=== PATIENT | male | born 1950 | race Caucasian/White ===

== ENCOUNTER 2016-09-23 09:12 | Outpatient (CLI) | payer MEDICARE, BC ==
[2016-09-23 10:47] LABS: Hemoglobin A1c 5.5 % (4.0-6.0)
== END 2016-09-23 09:13 | disposition home or self-care (01) ==
LOC: NAV LAB 09:12
PROVIDERS: ATTEND Family Medicine
DX: E11.9 Type 2 diabetes mellitus without complications (principal)
CPT/HCPCS: 36415; 83036

== ENCOUNTER 2016-12-22 08:33 | Outpatient (CLI) | payer MEDICARE, BC ==
[2016-12-22 09:24] LABS: Hemoglobin A1c 5.5 % (4.0-6.0)
== END 2016-12-22 08:34 | disposition home or self-care (01) ==
LOC: NAV LAB 08:33
PROVIDERS: ATTEND Family Medicine
DX: E11.9 Type 2 diabetes mellitus without complications (principal)
CPT/HCPCS: 36415; 83036

== ENCOUNTER 2017-03-09 08:48 | Outpatient (CLI) | payer MEDICARE, BC ==
[2017-03-09 15:40] LABS: Bilirubin Negative (Negative); Blood, Urine Trace (Negative); Clarity Clear (Clear); Glucose, Urine (Dipstick) Negative (Negative); Leukocyte Negative (Negative); Nitrite Negative (Negative); Protein, Urine (Dipstick) Negative (Neg-Trace); Urobilinogen 0.2 mg/dL (0.2-1.0); pH, Urine 6.5 (5.0-9.0)
[2017-03-09 19:06] LABS: RBC/HPF None Seen HPF (0-3); Squamous Epithelial 0-3 HPF (0-3)
== END 2017-03-09 08:49 | disposition home or self-care (01) ==
LOC: NAV LAB 08:48
PROVIDERS: ATTEND Urology
DX: R39.89 Other symptoms and signs involving the genitourinary system (principal)
CPT/HCPCS: 81001; 87086

== ENCOUNTER 2017-03-16 20:32 | Emergency (ER) | payer MEDICARE, BC ==
[2017-03-16 21:12] LABS: #Basophils 0.1 thou/uL (0.0-0.2); #Eosinphils 0.3 thou/uL (0.0-0.7); #Monocytes 0.7 thou/uL (0.11-0.59); #Neutrophils 5.4 thou/uL (1.40-6.50); %Basophils 0.9 % (0.0-1.0); %Lymphocytes 31.8 % (21.0-51.0); %Monocytes 7.2 % (0.0-10.0); Hemoglobin 14.7 g/dL (14.0-18.0); Mean Corpuscular HGB CONC 32.9 g/dL (32.0-36.0); Mean Corpuscular Hemoglobin 29.2 pg (27.0-31.0); Mean Corpuscular Volume 88.8 fl (80.0-94.0); Mean Platelet Volume 9.7 fL (7.4-10.4); Platelet Count 226 thou/uL (130-400); RBC Distribution Width 12.4 % (11.5-14.5); Red Blood Cell (RBC) Count 5.01 mill/uL (4.70-6.10); White Blood Cell (WBC) Count 9.4 thou/uL (4.8-10.8)
[2017-03-16 21:26] LABS: ALT (SGPT) 38 U/L (8-55); AST (SGOT) 25 U/L (5-34); Albumin 4.2 g/dL (3.4-4.8); Alkaline Phosphatase 65 U/L (40-150); Anion Gap 14 mmol/L (10-20); BUN (Urea Nitrogen) 18 mg/dL (8.4-25.7); Bilirubin, Total 0.4 mg/dL (0.2-1.2); CK (CPK) 47 U/L (30-200); Calc. Creatinine Clearance 0 mL/min (70-130); Calcium 9.7 mg/dL (7.8-10.44); Carbon Dioxide 24 mmol/L (23-31); Chloride 107 mmol/L (98-107); Estimated GFR-MDRD Greater than 90; Globulin 2.7 g/dL (2.4-3.5); Glucose 124 mg/dL (80-115); Potassium 3.8 mmol/L (3.5-5.1); Protein, Total 6.9 g/dL (5.8-8.1); Sodium 141 mmol/L (136-145)
[2017-03-16 21:27] LABS: CKMB 0.8 ng/mL (0-6.6); Troponin I Less than 0.010 ng/mL (< 0.028)
--- NOTE | 2017-03-16 21:45 | CT ---
HISTORY: Visual disturbance. CT BRAIN 03/16/[address] images of brain obtained. The brain is unremarkable. No evidence of intracra nial masses, hemorrhages, strokes or contusions seen. IMPRESSION: Normal CT brain. POS: [facility]
== END 2017-03-16 22:51 | disposition home or self-care (01) ==
LOC: NAV ERS 20:32
DX: H53.9 Unspecified visual disturbance (principal); R07.9 Chest pain, unspecified; E78.5 Hyperlipidemia, unspecified; I10 Essential (primary) hypertension; F41.9 Anxiety disorder, unspecified; Z79.899 Other long term (current) drug therapy; Z79.82 Long term (current) use of aspirin
CPT/HCPCS: 70450; 80053; 82553; 84484; 85025; 93005

== ENCOUNTER 2019-02-02 11:32 | Outpatient (CLI) | payer MEDICARE, BC ==
--- NOTE | 2019-02-02 12:50 | RAD ---
AP view abdomen. HISTORY: Left flank pain. AP view abdomen is obtained. Abdominal gas pattern is nonspecific. A large amount of stool seen in the colon. No dilated loops of small bowel or colon seen. IMPRESSION: no significant evidence of acute intra-abdominal pathology seen.
--- NOTE | 2019-02-02 13:38 | RAD ---
RIGHT HIP 2 VIEWS: Date: 02/02/19 HISTORY: Right hip pain. FINDINGS/IMPRESSION: Degenerative changes right hip joint with small lateral acetabular intraosseous cyst and evidence for a probable femoral bump. No acute fracture or dislocation, or other acute process. POS: OFF
== END 2019-02-02 11:33 | disposition home or self-care (01) ==
LOC: NAV RAD 11:32
PROVIDERS: ATTEND Family Medicine
DX: N20.0 Calculus of kidney (principal); M25.551 Pain in right hip; M16.11 Unilateral primary osteoarthritis, right hip; M85.68 Other cyst of bone, other site
CPT/HCPCS: 74018

== ENCOUNTER 2019-07-27 14:39 | Emergency (ER) | payer MEDICARE, BC ==
[2019-07-27] MEDS ORDERED: Lidocaine 1% (PF) 30 ML VIAL ONE (14:58)
[2019-07-27] MEDS ORDERED: Bacitracin 1 PK ONE (15:45)
[2019-07-27] MEDS ORDERED: Cephalexin 250 MG CAP ONE (15:57)
== END 2019-07-27 16:11 | disposition home or self-care (01) ==
LOC: NAV ERS 14:39
DX: S61.217A Laceration without foreign body of left little finger without damage to nail, initial encounter (principal); I25.10 Atherosclerotic heart disease of native coronary artery without angina pectoris; E78.5 Hyperlipidemia, unspecified; I10 Essential (primary) hypertension; F41.9 Anxiety disorder, unspecified; Z87.891 Personal history of nicotine dependence; Z86.73 Personal history of transient ischemic attack (TIA), and cerebral infarction without residual deficits; Z79.899 Other long term (current) drug therapy; Z79.82 Long term (current) use of aspirin; W26.0XXA Contact with knife, initial encounter
CPT/HCPCS: 12001; 90471; J2001

== ENCOUNTER 2020-02-26 22:02 | Emergency (ER) | payer MEDICARE, BC | END 2020-02-26 22:47 | disposition home or self-care (01) | LOC: NAV ERS 22:02 | DX: K40.90 Unilateral inguinal hernia, without obstruction or gangrene, not specified as recurrent (principal); I25.10 Atherosclerotic heart disease of native coronary artery without angina pectoris; E78.5 Hyperlipidemia, unspecified; E78.00 Pure hypercholesterolemia, unspecified; I10 Essential (primary) hypertension; Z86.73 Personal history of transient ischemic attack (TIA), and cerebral infarction without residual deficits; F41.9 Anxiety disorder, unspecified; Z87.891 Personal history of nicotine dependence; Z79.82 Long term (current) use of aspirin; Z79.899 Other long term (current) drug therapy | CPT/HCPCS: 99283 ==

== ENCOUNTER 2020-03-15 20:09 | Emergency (ER) | payer MEDICARE, BC | END 2020-03-15 20:43 | disposition home or self-care (01) | LOC: NAV ERS 20:09 | DX: R21 Rash and other nonspecific skin eruption (principal); I10 Essential (primary) hypertension; I25.10 Atherosclerotic heart disease of native coronary artery without angina pectoris; E78.5 Hyperlipidemia, unspecified; F41.9 Anxiety disorder, unspecified; Z87.891 Personal history of nicotine dependence; Z79.899 Other long term (current) drug therapy; Z79.82 Long term (current) use of aspirin | CPT/HCPCS: 99282 ==